=== PATIENT | female | born 2005 | race Caucasian/White ===

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

== ENCOUNTER 2023-02-01 16:04 | Outpatient (REF) | payer BC, SELFPAY ==
[2023-02-01 20:09] LABS: AST 14 U/L (15-37); Albumin 4.4 g/dL (3.4-5.0); Alkaline Phosphatase 71 U/L (46-116); Anion Gap 9.1 mmol/L (3-11); BUN 12 mg/dL (7-18); Bilirubin, Total 0.3 mg/dL (0.2-1.0); CO2 27.9 mmol/L (21.0-32.0); Calcium 9.5 mg/dL (8.5-10.1); Calculated LDL 111 mg/dL (<100); Chloride 102 mmol/L (98-107); Cholesterol 188 mg/dL (<200); Estimated GFR 83.23 (mL/min/1.73m2); Glucose 97 mg/dL (74-106); HDL Cholesterol 55 mg/dL (40-60); Potassium 4.3 mmol/L (3.5-5.1); Sodium 139 mmol/L (136-145); TSH 1.73 uIU/mL (0.52-4.13); Total Protein 7.6 g/dL (6.4-8.2); Triglyceride 112 mg/dL (<150)
[2023-02-01 20:14] LABS: Hemoglobin A1C 5.3 % (<5.7)
[2023-02-01 20:24] LABS: ALT 24 U/L (14-59)
[2023-02-02 03:09] LABS: FREE T4 1.03 ng/dL (0.78-1.34)
== END 2023-02-01 16:05 | disposition home or self-care (01) ==
LOC: NCHCN 16:04
PROVIDERS: PCP Nurse Practitioner Family; Visit Provider Family Medicine
DX: Z00.00 Encounter for general adult medical examination without abnormal findings (principal); G25.2 Other specified forms of tremor; Z13.220 Encounter for screening for lipoid disorders; Z13.1 Encounter for screening for diabetes mellitus
CPT/HCPCS: 80053; 80061; 83036; 84439; 84443

== ENCOUNTER 2024-04-21 03:24 | Outpatient (CLI) | payer BC, SELFPAY ==
--- NOTE | 2024-05-28 14:22 | W.NUTRFU ---
Date of service: 04/21/24 Time of Service: 12:30 Nutrition Note NOTE: Randi comes in for referred nutrition visit for weight mgt. Has struggled and states she feels mostly due to PCOS - has gained over 70lbs in the last 5 years. takes metformin BID for PCOS and manage glucose and methlyphenadate for ADHD. We discussed all the essentials - being active at baseline and scheduling time for exercise (both cardio for fat burning and strength tranining for insulin resistance and increased metabolism). Discussed sleep and stress mgt as well and their impact on weight. Encourage MVI (with iron and iodine) with extra vitamin D. We reviewed how to play with macros using AI and can get help with menu planning and food prep as far as batch cooking etc to make things easier. Discussed with [facility] lower CHO diet preferrable for results and suggested 180 grams of total carbs and suggested at least 30g of this be coming from fiber and no more than 15grams from added sugars most days (events/holidays etc are exceptions if she wants) We discussed protein goal of 135g but getting a good half of this from plan protein (legumes, whole soy, nuts and seeds, high protein intact grains like quinoa and oats and also use of whey protein is needing help with additional ~25g) pt has my contact info should she have questions, wants follow up or needs more resources Time Spent in Nutritional Counseling and Treatment: 20 min
== END 2024-04-21 03:25 | disposition home or self-care (01) ==
LOC: DS 03:25
PROVIDERS: PCP Nurse Practitioner Family; Visit Provider Dietitian, Registered
DX: Z71.3 Dietary counseling and surveillance (principal); E28.2 Polycystic ovarian syndrome
CPT/HCPCS: 00123; 97802